=== PATIENT | female | born 1990 | race Caucasian/White ===

== ENCOUNTER 2021-01-29 02:39 | Emergency (ER) | payer BC ==
[~2021-01-29] VITALS: Ht 162.6 cm; Wt 72.6 kg
[2021-01-29 02:53] VITALS: BP 135/79
--- NOTE | 2021-01-29 02:57 | NUR ---
PT AMBULATED TO BED 03.
--- NOTE | 2021-01-29 03:03 | NUR ---
PT PRESENTED TO THE ED W/ CC IF UTI S/S, FREQUENCY AND BURNING URINATION, PT STARTED FEELING SYMPTOMS ON 01/28, PT STATED "DRANK A LOT OF WATER AND SYMPTOMS DID NOT SUBSIDE", VSS, NO SIGNS OF ACUTE DISTRESS NO PMH NKA
[2021-01-29] MEDS ORDERED: PHENAZOPYRIDINE 100 MG TAB PO ONE (04:10)
--- NOTE | 2021-01-29 04:13 | NUR ---
ADMINISTERED ERMD MED ORDERS
[2021-01-29] MEDS ORDERED: PHEN-1877 PO (04:14)
[2021-01-29] MEDS ORDERED: CEPH-588 PO (04:14)
[2021-01-29 04:19] VITALS: BP 135/79
--- NOTE | 2021-01-29 04:20 | NUR ---
Patient discharged with v/s stable. Written and verbal after care instructions given and explained. Patient alert, oriented and verbalized understanding of instructions. Ambulatory with steady gait. All questions addressed prior to discharge. ID band removed. Patient advised to follow up with PMD. Rx of KEFLEX AND PYRIDIUM given. Patient educated on indication of medication including possible reaction and side effects. Opportunity to ask questions provided and answered.
== END 2021-01-29 04:20 | disposition home or self-care (01) ==
LOC: MED 02:39
DX: N39.0 Urinary tract infection, site not specified (principal)
CPT/HCPCS: 81002; 81025; 99283

== ENCOUNTER 2022-04-04 03:55 | Emergency (ER) | payer BC ==
[~2022-04-04] VITALS: Ht 162.6 cm; Wt 70.3 kg
[~2022-04-04 03:55] MED LIST: CEPH-588 PO; PHEN-1877 PO
[2022-04-04 04:00] VITALS: BP 141/91
--- NOTE | 2022-04-04 04:00 | NUR ---
TO BED AMBULATORY
--- NOTE | 2022-04-04 04:21 | NUR ---
URINE COLLECTED AND SENT TO LAB
--- NOTE | 2022-04-04 04:21 | NUR ---
PT IN ROOM 4
--- NOTE | 2022-04-04 04:35 | NUR ---
31YR OLD FEMALE BIB SELF C/O BURNING WITH URINATION. PT WAS ON ABX FOR UTI AND RECENTLY FINISHED. SX ARE STILL OCCURING. PAIN 6/10 BURNING WITH URINATION . ACHE PAIN IN LOWER FLANK AREA. PT IS A&OX4 . URINE OBTAINED AND SENT TO LAB. ' NKDA NO HX
--- NOTE | 2022-04-04 04:35 | NUR ---
ER AT BEDSIDE
--- NOTE | 2022-04-04 04:52 | NUR ---
PT PENDING DISPO
[2022-04-04 04:55] LABS: APPEARANCE,URINE CLEAR (CLEAR); BILIRUBIN,URINE NEGATIVE (NEGATIVE); BLOOD, URINE 3+ (NEGATIVE); COLOR,URINE ORANGE (YELLOW); LEUKOCYTE ESTERASE ,URINE 1+ (NEGATIVE); NITRITE, URINE POSITIVE (NEGATIVE); UGLUCOSE TRACE (NEGATIVE)
[2022-04-04 05:02] LABS: RBC,URINE 0-5 /HPF (0-5); WBC,URINE TOO MANY TO COUNT /HPF (0-5)
[2022-04-04] MEDS ORDERED: CEPH-588 PO (05:09)
[2022-04-04] MEDS ORDERED: PYR100 PO (05:09)
--- NOTE | 2022-04-04 05:15 | NUR ---
Patient discharged with v/s stable. Written and verbal after care instructions given and explained. Patient verbalized understanding. Ambulatory with steady gait. All questions addressed prior to discharge. Advised to follow up with PMD.
--- NOTE | 2022-04-04 05:20 | NUR ---
The patient's care was reviewed and supervised by Adelaida Lozada RN.
== END 2022-04-04 05:15 | disposition home or self-care (01) ==
LOC: MED 03:55
DX: N39.0 Urinary tract infection, site not specified (principal)
CPT/HCPCS: 81001; 81025; 87086; 99283